=== PATIENT | male | born 1995 | race Caucasian/White ===

== ENCOUNTER → 2016-07-20 | Outpatient (CLI) | payer BC, OTHER | LOC: PREOP 05:47 | PROVIDERS: ATTEND Internal Medicine | DX: Z01.818 Encounter for other preprocedural examination (principal); R10.31 Right lower quadrant pain; R93.3 Abnormal findings on diagnostic imaging of other parts of digestive tract ==

== ENCOUNTER 2016-07-21 06:24 | Day surgery (SDC) | payer BC ==
--- NOTE | 2016-07-20 17:34 | HISTORY AND PHYSICAL ---
DATE OF SERVICE: The patient is a 20-year-old white male referred by Dr. Gallego for colonoscopy for abdominal pain. He was well up until spring which he spent in [place]. He reports within 24 hours of eating some sushi, he developed the onset epigastric abdominal pain. This was associated with diarrhea for 2-1/2 days. He noted no blood, he had more mucus in the stool. Shortly thereafter, his cousin who was with him and apparently did not get ill saw a [employer] report about anisakiasis apparently reported in the [place] in their area. His symptom complex sounds suspicious for this. His symptom complex sounds suspicious for this. He had improvement after 2-1/2 days of the symptoms. Then over , he had more lower intestinal abdominal pain without diarrhea. He still persists in having some right lower quadrant pain to palpation. On he reported receiving an antibiotics and steroid regimen with mild improvement in symptoms. He is still having mild right lower quadrant abdominal pain. He underwent CT scanning which revealed thickening over the transverse colon and descending colon. No abscess formation was visualized. He did have stool for ova and parasite examination which was negative reported on the . He had a CBC drawn which was unremarkable including no evidence for eosinophilia. White count was 6.8 thousand with a normal differential and normal platelet count of 224,000. He came with his mother today who are both concerned about a parasitic infection. PAST MEDICAL HISTORY: Noncontributory. He has some mild seasonal allergies that he will take occasional Zyrtec or Sudafed for. Reports no other health issues. PAST SURGICAL HISTORY: Noncontributory. SOCIAL HISTORY: He is a lifetime nonsmoker with no significant alcohol history. 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 PHYSICAL EXAMINATION: GENERAL: Reveals a well-developed white male who appears to be in no acute distress. VITAL SIGNS: Blood pressure 104/65. HEENT: Unremarkable. CHEST: Clear. CARDIOVASCULAR: Regular rate and rhythm without murmur, S3 or S4. ABDOMEN: Soft, supple. He has some right lower quadrant discomfort to palpation. No mass or organomegaly is noted. He has no pain over the transverse colon or descending colon to palpation. No evidence for abdominal distention was noted. No evidence of bruits are appreciated. There is no rebound or guarding. EXTREMITIES: No evidence for rash, edema, cyanosis or clubbing. ASSESSMENT: For further evaluation of CT scan abnormality and ongoing abdominal pain, predominantly right lower quadrant, will perform colonoscopy evaluation. Literature review was performed in regards to anisakiasis. We may need to consider EGD evaluation if there are any inflammatory changes in the colon as the upper GI tract is the more typical attachment site for the worm form of which there is usually only 1 or 2. Removal of the worm is curative. The ova can contribute to inflammation in the lower GI tract and sometimes sterile abscess formation but they do not survive in the human host. I thank you for the referral of this pleasant gentleman who is scheduled for colonoscopy with possible EGD to follow in the morning. Job ID: [id number] DocumentID: [id number] Dictated Date: 07/20/2016 17:01:24 Second Miller Date: 07/20/2016 17:34:25 Dictated By: TEMO VIZCARRA MD
[~2016-07-21] VITALS: Ht 177.8 cm; Wt 83.9 kg
[2016-07-21] MEDS ORDERED: 1/2 NS IV SOLUTION 1,000 ML IV ONE (06:34)
[2016-07-21] MEDS ORDERED: NS IV 1000 ML 1,000 ML IV STA (06:35)
[2016-07-21] MEDS ORDERED: NALOXONE 0.4 MG/ML 1 ML (NARCAN) VIAL IVP PRN (06:45)
[2016-07-21] MEDS ORDERED: FLUMAZENIL (ROMAZICON) 0.1 MG/ML 5 ML VIAL INJ PRN (06:45)
[2016-07-21] MEDS ORDERED: MIDAZOLAM 2 MG/2 ML (VERSED) VIAL ONE ×3 (06:54)
[2016-07-21] MEDS ORDERED: fentaNYL INJECTION 100 MCG/2 ML AMP ONE ×2 (06:55)
[2016-07-21] MEDS ORDERED: LIDOCAINE JELLY 2% (XYLOCAINE) 5 ML TUBE ONE (06:55)
[2016-07-21] MEDS: fentaNYL INJECTION 100 MCG/2 ML AMP IVP PRN ×2 (06:57→07:08)
[2016-07-21] MEDS: MIDAZOLAM 2 MG/2 ML (VERSED) VIAL IVP PRN ×2 (07:00→07:09)
[2016-07-21 07:11] VITALS: BP 113/73
--- NOTE | 2016-07-21 07:26 | Pre-Op Note & Conscious Sedat ---
Pre-Operative Progress Note H&P Reviewed The H&P was reviewed, patient examined and no changes noted. Date H&P Reviewed: July 21, 2016 Time H&P Reviewed: 06:55 Conscious Sedation Pre-Proced ASA Class: 1 Airway Mallampati Classification: ([place] appropriate class) I. II. III, IV Lungs Heart ASA score ASA 1: a normal healthy patient ASA 2: a patient with a mild systemic disease (mid diabetes, controlled hypertension, obesity ASA 3: a patient with a severe systemic disease that limits activity (angina , COPD, prior Myocardial infarction) ASA 4: a patient with an incapacitating disease that is a constant threat to life (CHF, renal failure) ASA 5: a moribund patient not expected to survive 24 hrs. (ruptured aneurysm) ASA 6: a declared brain patient whose organs are being harvested. For emergent operations, add the letter E after the classification Grade 2 Sedation Plan: Analgesia, Amnesia, Plan communicated to team members, Discussed options with patient/fam, Discussed risks with patient/fam Note The patient is an appropriate candidate to undergo the planned procedure, sedation, and anesthesia. The patient immediately re-assessed prior to indication. TEMO VIZCARRA MD July 21, 2016 07:26
[2016-07-21 07:30] VITALS: BP 106/62
[2016-07-21 07:45] VITALS: BP 112/68
[2016-07-21 09:45] VITALS: BP 112/68
--- NOTE | 2016-07-22 01:06 | OPERATIVE REPORT ---
DATE OF SERVICE: PROCEDURE PERFORMED: Colonoscopy. INDICATIONS FOR PROCEDURE: Right lower quadrant abdominal pain with abnormal CT findings. PROCEDURE IN DETAIL: The patient was placed in the left lateral decubitus position. Prior to undergoing colonoscopy, digital rectal evaluation was performed. Anal sphincterotome was normal and the perianal reflexes intact. The prostate was normal in size, anodular and nontender to digital inspection. The colonoscope was then inserted into the rectum and under direct visualization advanced to the cecum. The cecum was identified by identification of the ileocecal valve, cecal strap and the appendiceal orifice. Photographic documentation was obtained. Careful inspection was made as the colonoscope was withdrawn. The patient tolerated the procedure well and did not have an irritable bowel type response to air insufflation or colonic manipulation. FINDINGS: There was no evidence for internal or external hemorrhoids. The rectum, sigmoid colon, descending colon, transverse colon, hepatic flexure, ascending colon and cecum were unremarkable. No inflammatory change was noted. No diverticulum was noted. No vascular malformations were present. ASSESSMENT: Normal colonoscopy with the cecum, including the descending colon and transverse colon that had an abnormal appearance on earlier CT scan. The patient and family were reassured by today's findings. I suspect that his symptoms have been aggravated over fear of a parasite infection. The patient had consumed sushi, became ill after this, and then heard a CNN report about apparently several cases of anisakiasis being reported in the [place] Hopefully, today is reassurance that there is no evidence for parasite infestation. We will resolve the remainder of his mild right lower quadrant abdominal discomfort. Thank you for the referral. Sincerely, Job ID: [id number] DocumentID: [id number] Dictated Date: 07/21/2016 08:11:52 [employer] Date: 07/21/2016 16:40:10 Dictated By: TEMO VIZCARRA MD
== END 2016-07-21 07:50 | disposition home or self-care (01) ==
LOC: ENDO 06:24
PROVIDERS: ATTEND Internal Medicine
DX: R10.31 Right lower quadrant pain (principal); R93.3 Abnormal findings on diagnostic imaging of other parts of digestive tract